=== PATIENT | female | born 1985 | race African-American/Black ===

== ENCOUNTER 2019-12-08 00:52 | Emergency (ER) | payer OTHER ==
[~2019-12-08] VITALS: Ht 162.6 cm; Wt 108.9 kg
[2019-12-08] MEDS ORDERED: BUTALB-APAP-CA1 EACH PO (02:44)
[2019-12-08 02:55] VITALS: BP 116/78
== END 2019-12-08 02:57 | disposition home or self-care (01) ==
LOC: ER 00:52
DX: G43.909 Migraine, unspecified, not intractable, without status migrainosus (principal)